=== PATIENT | female | born 1975 ===

== ENCOUNTER 2017-10-15 10:20 | Emergency (ER) | payer BC, MEDICAID ==
[2017-10-15 10:37] VITALS: BP 138/85; PULSE 85; RESP 18; TEMP 99.4; O2SAT 100
[2017-10-15] MEDS ORDERED: Naproxen 550 mg Tab PO STA (11:17)
--- NOTE | 2017-10-15 11:17 | C.PDOC ---
History Of Present Illness 42 y/o female c/o intermittent lower back pain over last 2 weeks that radiates down both posterior thighs, that worsened yesterday. pt took one otc aleve with mild relief. pt works at [employer]. pt reports similar symptoms in the past. pain worse with change in position and movement. pt denies any saddle anesthesia, numbness, tingling or lower extremity weakness. Time Seen by Provider: 10/15/17 11:02 Chief Complaint (Nursing): Back Pain History Per: Patient History/Exam Limitations: no limitations Onset/Duration Of Symptoms: Intermittent Episodes (2 weeks) Current Symptoms Are (Timing): Still Present Quality Of Discomfort: "Pain" Previous Symptoms: Back Pain Associated Symptoms: denies: Incontinence, New Weakness, New Numbness Exacerbating Factor(s): Movement Recent travel outside of the [place]: No Additional History Per: Patient Past Medical History Reviewed: Historical Data, Nursing Documentation, Vital Signs Vital Signs: Last Vital Signs Temp 99.4 F 10/15/17 10:36 Pulse 85 10/15/17 10:36 Resp 18 10/15/17 10:36 BP 138/85 10/15/17 10:36 Pulse Ox 100 10/15/17 11:58 - Medical History PMH: HTN Surgical History: No Surg Hx Family History: States: Unknown Family Hx - Social History Hx Alcohol Use: Yes Hx Substance Use: No - Immunization History Hx Tetanus Toxoid Vaccination: No Hx Influenza Vaccination: No Hx Pneumococcal Vaccination: No Review Of Systems Constitutional: Negative for: Fever, Chills Cardiovascular: Negative for: Chest Pain Respiratory: Negative for: Cough, Shortness of Breath Gastrointestinal: Negative for: Nausea, Vomiting, Abdominal Pain Musculoskeletal: Positive for: Back Pain (Lower), Leg Pain (Posterior thighs) Skin: Negative for: Rash Neurological: Negative for: Weakness, Numbness Physical Exam - Physical Exam Appears: Non-toxic, No Acute Distress Skin: Normal Color, Warm, Dry Head: Atraumatic, Normacephalic Eye(s): bilateral: PERRL Oral Mucosa: Moist Throat: Normal, No Erythema, No Exudate Neck: Normal ROM, Supple Chest: Symmetrical Cardiovascular: Rhythm Regular, No Murmur Respiratory: Normal Breath Sounds, No Rales, No Rhonchi, No Wheezing Gastrointestinal/Abdominal: Soft, No Tenderness, No Guarding, No Rebound Back: Normal Inspection, No Vertebral Tenderness, Other (bilateral sciatic notch tender) Extremity: Normal ROM, No Deformity, No Swelling Neurological/Psych: Oriented x3, Normal Speech, Normal Cognition, Normal Motor, Normal Sensation Gait: Steady ED Course And Treatment O2 Sat by Pulse Oximetry: 100 (On RA) Pulse Ox Interpretation: Normal Medical Decision Making Medical Decision Making: Plan: * Anaprox 550 mg PO given * Flexeril 10 mg PO given * Tylenol 975 mg PO given * POC ordered Disposition Counseled Patient/Family Regarding: Diagnosis, Need For Followup, Rx Given - Disposition Referrals: Yovanny Estevez MD [Non-Staff] - Disposition: HOME/ ROUTINE Disposition Time: 11:36 Condition: IMPROVED Additional Instructions: Please take medications as prescribed. Muscle relaxant makes you sleepy, so no driving or working with this medicine. Follow up with your doctor next week; physical therapy suggested. Return to ER for any worse pain, numbness, tingling , difficulty walking, bladder or bowel problems or any other concerns. Prescriptions: Acetaminophen [Tylenol 325mg tab] 650 mg PO Q6 #30 tab Cyclobenzaprine [Cyclobenzaprine HCl] 10 mg PO Q8 #9 tab Naproxen 500 mg PO BID #20 tab Instructions: Sciatica (ED) Forms: General Discharge Instructions, [facility] (Luxem[place]ish), Work Excuse - Clinical Impression Clinical Impression: Low back pain, Sciatica - PA / SAND CASTER / Resident Statement MD/DO has reviewed & agrees with the documentation as recorded.
[2017-10-15] MEDS ORDERED: Naproxen 550 mg Tab PO ONE (11:33)
== END 2017-10-15 11:55 | disposition home or self-care (01) ==
LOC: C.ER 10:20
DX: M54.42 Lumbago with sciatica, left side (principal); M54.41 Lumbago with sciatica, right side

== ENCOUNTER 2018-05-28 12:16 | Emergency (ER) | payer BC, MEDICAID ==
[2018-05-28 12:23] VITALS: BP 142/89; PULSE 84; RESP 18; TEMP 99; O2SAT 98
--- NOTE | 2018-05-28 13:54 | C.PDOC ---
History Of Present Illness 42yo female, comes to ER for evaluation of parasternal chest pain, worsening over the past 3 days. Patient denies any direct trauma or injury, radiation of pain, vomiting, and offers no other medical complaints. Time Seen by Provider: 05/28/18 13:42 Chief Complaint (Nursing): Chest Pain History Per: Patient History/Exam Limitations: no limitations Onset/Duration Of Symptoms: Days Current Symptoms Are (Timing): Still Present Quality: "Pain" Associated Symptoms: denies: Nausea, Dyspnea, Diaphoresis, Syncope Additional History Per: Patient Past Medical History Reviewed: Historical Data, Nursing Documentation, Vital Signs Vital Signs: Last Vital Signs Temp 99 F 05/28/18 12:21 Pulse 84 05/28/18 12:21 Resp 18 05/28/18 12:21 BP 142/89 05/28/18 12:21 Pulse Ox 98 05/28/18 14:23 - Medical History PMH: HTN Surgical History: No Surg Hx Family History: States: Unknown Family Hx - Social History Hx Alcohol Use: Yes Hx Substance Use: No - Immunization History Hx Tetanus Toxoid Vaccination: No Hx Influenza Vaccination: No Hx Pneumococcal Vaccination: No Review Of Systems Except As Marked, All Systems Reviewed And Found Negative. Constitutional: Negative for: Fever, Chills Cardiovascular: Positive for: Chest Pain. Negative for: Light Headedness Respiratory: Negative for: Cough, Shortness of Breath Gastrointestinal: Negative for: Vomiting, Abdominal Pain Neurological: Negative for: Weakness, Numbness Physical Exam - Physical Exam Appears: Non-toxic, No Acute Distress Skin: Warm, Dry, No Pale Head: Normacephalic Eye(s): bilateral: Normal Inspection Neck: Supple Chest: Symmetrical, Tenderness (digitally reporducible tenderness to bilateral parasternal borders) Cardiovascular: Rhythm Regular Respiratory: Normal Breath Sounds, No Decreased Breath Sounds, No Accessory Muscle Use, No Rales, No Rhonchi, No Wheezing Neurological/Psych: Oriented x3 ED Course And Treatment ECG: Interpreted By Me, Viewed By Me ECG Rhythm: Sinus Rhythm ECG Interpretation: Normal Rate From EC O2 Sat by Pulse Oximetry: 98 (RA) Pulse Ox Interpretation: Normal Medical Decision Making Medical Decision Making: repetative movements working [employer] + digitally/positinally reproducable, normal EKG c/w Costochondritis. Disposition Doctor Will See Patient In The: Office Counseled Patient/Family Regarding: Studies Performed, Diagnosis - Disposition Referrals: [facility] [Outside] [facility] [Outside] [facility] [Outside] Poncho Aguero MD [Medical Doctor] - Disposition: HOME/ ROUTINE Disposition Time: 13:53 Condition: GOOD Additional Instructions: ice packs 1/2 hour per hour, nothing hot no hot showers motrin/Advil 400-600 mg every 6 hours as needed avoid heavy lifting for 1 week follow-up in our outpatient [facility] as needed. Instructions: Costochondritis Forms: [facility] (Liberian), Work Excuse - Clinical Impression Clinical Impression: Chest wall discomfort - Scribe Statement The provider has reviewed the documentation as recorded by the Tello D[place] Provider Attestation: All medical record entries made by the Tello were at my direction and personally dictated by me. I have reviewed the chart and agree that the record accurately reflects my personal performance of the history, physical exam, medical decision making, and the department course for this patient. I have also personally directed, reviewed, and agree with the discharge instructions and disposition.
== END 2018-05-28 14:15 | disposition home or self-care (01) ==
LOC: C.ER 12:16
DX: R07.89 Other chest pain (principal)